=== PATIENT | male | born 1980 | race Two or more races ===

== ENCOUNTER → 2016-08-22 | Day surgery (SDC) | payer OTHER ==
[~2016-08-22] MED LIST: ZYRTEC10 M1 PO
--- NOTE | ~2016-08-22 | CR91 ---
[facility] A Service of [facility] RADIOLOGY TEXT RESULTS PATIENT: DORY JAY LOCATION: [facility] : 78 UNIT #: [id number] AGE: [address]: Winston Connor MD SEX: M ORDER DR: [id number] [facility] [address] [place], [place] [address] [id number] O MR#: [id number] Acc #: [id number] NAME: DORY JAY : 1980 SEX: M STUDY DATE/TIME: 08/22/2016 12:29 UNIT: [facility] ROOM: STUDY DESCRIPTION: CR Elbow 2 View Rt Attending Physician: Winston Connor M.D. Ordering Physician: Winston Connor M.D. Primary Care Physician: Bry Snell M.D. MEDICAL IMAGING REPORT This report is preliminary unless electronic signature is present EXAM Intraoperative radiographs of the right elbow, 08/22/2016 HISTORY SUPPLIED Biceps tendon repair. FINDINGS 2 intraoperative C-arm images are submitted with a fixation device in the proximal radius. Total fluoroscopy time for the procedure is less than 23 seconds and 2 images were submitted. Please see the operative note from Dr. Field. Dictated by... Nabil Resendez M.D. THIS IS AN ELECTRONICALLY VERIFIED REPORT Nabil Resendez M.D. at 08/26/2016 5:09 PM Alyssia TD: 08/22/2016 23:42 JOB #: [id number] MEDICAL IMAGING REPORT Page 1 of 1 COPY
--- NOTE | ~2016-08-22 | OR ---
Unit #: [id number] #: [id number] Patient: TITUS JAY [id number] [address] [place], [place] [address] [id number] O MR#: [id number] NAME: TITUS JAY ROOM: Date of Procedure: 08/22/2016 Admission Date: 08/22/2016 Surgeon: Winston Connor M.D. : 1980 Attending Physician: Winston Connor M.D. Primary Care Physician: Bry Snell M.D. OPERATIVE REPORT PREOPERATIVE DIAGNOSIS Right distal biceps tendon tear. POSTOPERATIVE DIAGNOSIS Right distal biceps tendon tear. PROCEDURE PERFORMED Right distal biceps tendon repair, [id number]. 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 ANESTHESIA General with LMA. COMPLICATIONS None. SPECIMENS None. DRAINS None. SURGICAL IMPLANTS Biomet ToggleLoc distal biceps repair button. INDICATIONS FOR PROCEDURE Titus is a 36-year-old male, who was lifting an object and felt a pop in the right arm. He had a Timo deformity. MRI was performed, confirming distal biceps tendon tear. After a long discussion regarding options, the patient elected surgical intervention. He understood the risks and benefits. The risks, benefits, and alternatives were discussed. Informed consent was obtained. Risks include, but not limited to, infection, bleeding, nerve injury, blood clots, risks associated with anesthesia, and possibly . DESCRIPTION OF PROCEDURE On 08/22/2016, the patient was seen in the preoperative holding area, where his surgical site was marked. Preoperative antibiotics were received. H and P and consent updated. The patient was taken to the operating room, provided general anesthesia. Right upper extremity was Unit #: [id number] #: [id number] Patient: TITUS JAY prepped and draped in typical sterile fashion. Time-out was performed confirming the correct surgical site and procedure. An Esmarch was used to exsanguinate the arm and tourniquet was inflated to 250 mmHg. At this point, a longitudinal incision was made just distal to the antecubital fossa. This was over the distal biceps insertion site. Incision was taken down carefully through skin and subcutaneous tissues. Soft tissues were retracted including the lateral antebrachial cutaneous nerve. These were protected throughout the case. The tendon was identified and healed into the surrounding soft tissues along the ulnar aspect of the arm. It was significantly scarred in. After careful dissection of the tendon and muscle were mobilized, the end of the tendon was then sutured with a #2 MaxBraid using a locking Krackow stitch up and down the tendon. The ToggleLoc was attached to the tendon and secured. Once this was complete, focus was placed on preparation of the radial tuberosity insertion site. Careful retraction of the soft tissues were performed and the wrist and forearm were maximally supinated. Tuberosity was identified. It was debrided to the bony surface. A Beath pin was placed on the tuberosity. Fluoroscopy was brought in, confirming appropriate location for the Beath pin. It was inserted bicortically. A 4.5 mm cannulated reamer was placed with the guide over the pin and passed through both cortices. In a similar fashion, a 7 mm drill was passed through the leading cortex only. All bone dust and other debris was thoroughly irrigated and suctioned out of the wound. The distal biceps tendon had been bulleted and noted to be able to pass through a 7 mm cannula. At this point, the ToggleLoc was then passed through the bicortical radius tunnel. It was flipped on the dorsal side. Fluoroscopy confirmed this. The tendon was then advanced using the ToggleLoc system and dunked into the radial tuberosity. The arm was cycled. The elimination of any creep was performed. Sutures were then cut flush at the tuberosity. Full extension was noted. Biceps was restored to anatomic position. At this point, tourniquet was released. Hemostasis was noted. Wound was thoroughly irrigated. Subcutaneous tissue was closed with 2-0 Vicryl suture followed by a 4-0 Monocryl subcuticular skin stitch. Dermabond, Telfa, Tegaderm placed along with a well-padded posterior splint at about 60 degrees. The patient was subsequently awakened from general anesthesia and taken to PACU postoperatively. POSTOPERATIVE PLAN The patient will be discharged home. Follow up in 7 to 10 days. He will ice and elevate. He will be nonweightbearing. No complications were encountered during the surgical procedure. Dictated by... Winston Connor M.D. SHUN/colette TD: 08/23/2016 23:06 JOB #: [id number] Unit #: [id number] #: [id number] Patient: TITUS JAY OPERATIVE REPORT X X PROCEDURE OPERATIVE NOTE
== END | disposition home or self-care (01) ==
LOC: CSUR 09:07
DX: S46.211A Strain of muscle, fascia and tendon of other parts of biceps, right arm, initial encounter (principal); X58.XXXA Exposure to other specified factors, initial encounter
CPT/HCPCS: 73070; C1713; J0690; J2250; J2405; J2795; J3010